=== PATIENT | male | born 2000 | race African-American/Black ===

== ENCOUNTER 2019-08-31 15:29 | Emergency (ER) | payer BC ==
[~2019-08-31] VITALS: Ht 190.5 cm; Wt 91.4 kg
[2019-08-31] MEDS ORDERED: cefTRIAXone IM 250 MG VIAL IM ONE (16:00)
[2019-08-31] MEDS ORDERED: AZITHROMYCIN 250 MG TABLET. PO ONE (16:00)
--- NOTE | 2019-08-31 16:24 | RAD ---
Exam: Ultrasound scrotum Indication: Left testicular pain Technique: Real-time grayscale and color Doppler images of the scrotum were obtained by the department honeycomb decapper. Comparisons: None FINDINGS: Right testicle measures 5.6 x 2.5 x 3.3 cm. Left testicle measures 5.4 x 2.6 x 3.6 cm. Arterial and venous waveforms identified within the ovaries bilaterally. Small bilateral hydroceles. IMPRESSION: 1. Normal sonographic appearance of the testicles. No evidence for testicular torsion. 2. Small bilateral hydroceles. Electronically signed by: Anahi Klein MD (08/31/2019 4:21 PM) [facility]
[2019-08-31 17:03] LABS: BACTERIA,URINE 0 /HPF (0-FEW); BILIRUBIN,URINE NEG (NEG); CLARITY,URINE HAZY; COLOR,URINE STRAW; GLUCOSE,URINE NEG (NEG); NITRITE,URINE NEG (NEG); RBC,URINE 0 /HPF (0-2); SQUAMOUS EPITHELIAL CELL,UR OCC /LPF; UROBILINOGEN,URINE 0.2 mg/dL (0.2 mg/dL); WBC,URINE 0 /HPF (0-4)
[2019-08-31 17:21] VITALS: BP 133/87
--- NOTE | 2019-08-31 18:05 | PHYS DOC ---
Past History Past Medical History: No Pertinent History Past Surgical History: Other Additional Past Surgical Histo: left ankle Alcohol Use: None Drug Use: Marijuana Adult General Chief Complaint Chief Complaint: TESTICULAR PAIN OR INJURY HPI HPI Patient is a 19-year-old male presenting with left testicle pain intermittent 1 month occasional dysuria is actually worried about STD and wants to be tested for that. Review of Systems Review of Systems Constitutional: Denies fever or chills [] Eyes: Denies change in visual acuity, redness, or eye pain [] HENT: Denies nasal congestion or sore throat [] Respiratory: Denies cough or shortness of breath [] Cardiovascular: No additional information not addressed in HPI [] GI: Denies abdominal pain, nausea, vomiting, bloody stools or diarrhea [] All other systems were reviewed and found to be within normal limits, except as documented in this note. Current Medications Current Medications Current Medications Medications (Trade) Dose Ordered Sig/Kevin Start Time Stop Time Status Last Admin Dose Admin Azithromycin (Zithromax) 1,000 mg 1X ONCE 08/31/19 16:00 08/31/19 16:01 DC 08/31/19 16:16 1,000 MG Ceftriaxone Sodium (Rocephin Im) 250 mg 1X ONCE 08/31/19 16:00 08/31/19 16:01 DC 08/31/19 16:21 250 MG Allergies Allergies Allergies Coded Allergies Type Severity Reaction Last Updated Verified No Known Drug Allergies 08/31/19 No Physical Exam Physical Exam Constitutional: Well developed, well nourished, no acute distress, non-toxic appearance. [] HENT: Normocephalic, atraumatic, bilateral external ears normal, oropharynx moist, no oral exudates, nose normal. [] Eyes: PERRLA, EOMI, conjunctiva normal, no discharge. [] Neck: Normal range of motion, no tenderness, supple, no stridor. [] gu normal testicles and penis Abdomen: Bowel sounds normal, soft, no tenderness, no masses, no pulsatile masses. [] Extremities: No tenderness, no cyanosis, no clubbing, ROM intact, no edema. [] Neurologic: Alert and oriented X 3, normal motor function, normal sensory function, no focal deficits noted. [] Psychologic: Affect normal, judgement normal, mood normal. [] Current Patient Data Vital Signs Vital Signs Date Time Temp Pulse Resp B/P (MAP) Pulse Ox O2 Delivery O2 Flow Rate FiO2 08/31/19 17:21 66 18 133/87 (102) 96 Room Air 08/31/19 15:29 98.1 Lab Results Laboratory Tests Test 08/31/19 16:10 Urine Collection Type Unknown Urine Color Straw Urine Clarity Hazy Urine pH 8.5 Urine Specific [place] 1.020 Urine Protein Neg (NEG-TRACE) Urine Glucose (UA) Neg mg/dL (NEG) Urine Ketones (Stick) Neg mg/dL (NEG) Urine Blood Neg (NEG) Urine Nitrite Neg (NEG) Urine Bilirubin Neg (NEG) Urine Urobilinogen Dipstick 0.2 mg/dL (0.2 mg/dL) Urine Leukocyte Esterase Neg (NEG) Urine RBC 0 /HPF (0-2) Urine WBC 0 /HPF (0-4) Urine Squamous Epithelial Cells Occ /LPF Urine Bacteria 0 /HPF (0-FEW) EKG EKG [] Radiology/Procedures Radiology/Procedures [] Impressions: IMPRESSION: 1. Normal sonographic appearance of the testicles. No evidence for testicular torsion. 2. Small bilateral hydroceles. Electronically signed by: Anahi Cameron MD (08/31/2019 4:21 PM) [facility] DICTATED AND SIGNED BY: ANAHI CAMERON MD DATE: 08/31/191620 CC: LEOBARDO DAVILA MD; PCP,NO ~ Course & Med Decision Making Course & Med Decision Making Pertinent Labs and Imaging studies reviewed. (See chart for details) []19yo m with scrotal pain and dysuria x one loyd treated presumptively for ctx and azithro in case of urethritis counseled on safe sex Dragon Disclaimer Dragon Disclaimer This electronic medical record was generated, in whole or in part, using a voice recognition dictation system. Departure Departure: Impression: Primary Impression: Scrotal pain Disposition: HOME, SELF-CARE Condition: STABLE Patient Instructions: Dysuria-Brief LEOBARDO DAVILA MD Aug 31, 2019 18:05
== END 2019-08-31 17:23 | disposition home or self-care (01) ==
LOC: EDBD 15:29 → ER 15:29
DX: N50.82 Scrotal pain (principal); R30.0 Dysuria; N43.3 Hydrocele, unspecified
CPT/HCPCS: 36415; 76870; 81001; 87491; 87591; 96372; 99285; J0456; J0696

== ENCOUNTER → 2020-08-16 | Outpatient (CLI) | payer BC | LOC: LAB 11:36 | PROVIDERS: ATTEND Physician Assistant | DX: Z20.828 Contact with and (suspected) exposure to other viral communicable diseases (principal) | CPT/HCPCS: 36415; 84484 ==